=== PATIENT | female | born 1990 | race Caucasian/White ===

== ENCOUNTER 2023-03-15 22:10 | Emergency (ER) | payer OTHER, SELFPAY ==
[2023-03-15 22:12] VITALS: BP 138/102; PULSE 100; RESP 20; TEMP 36.2; O2SAT 97; BMI 35.3
--- NOTE | 2023-03-15 23:26 | ED.VIS.DENTA ---
HPI History of Present Illness Chief Complaint: Dental Informant: patient Narrative Narrative: Patient presents with right-sided dental pain. Patient states that she had a episode of congestion runny nose some chills about 2 weeks ago. She was not really having a lot of right facial pain though. Those symptoms of congestion gotten better but she is maintaining a lot of pain and pressure in this right side of the face. She has sought urgent care about 2 days ago. She was started on Augmentin. But she states the pain is her problem. She was given Toradol there. She has been on a nonsteroidal and Tylenol and it just does not help. No neurologic symptoms. No visual symptoms. It does not hurt when she is exposed to hot or cold liquids or foods. Does not hurt to chew. PFSH PFSH Home Medications fluconazole 150 mg tablet (Diflucan) 150 mg PO Q3D 2 doses #2 tabs 01/31/21 [Rx Last Taken Unknown] norgestimate 0.25 mg-ethinyl estradiol 35 mcg tablet (Previfem) 1 tab PO DAILY 01/31/21 [History Last Taken Unknown] hydrocodone-acetaminophen 5-325mg 5mg-325mg 1 tab PO Q6H PRN PRN Pain 3 days #10 TABLETS 03/15/23 [Rx Last Taken Unknown] prednisone 20 mg tablet 40 mg (2 x 20 mg) PO DAILY 5 days #10 TABLETS 03/15/23 [Rx Last Taken Unknown] Allergy/AdvReac Type Severity Reaction Status Date / Time No Known Allergies Allergy Verified 03/15/23 22:12 Social History Smoking Status: Current every day smoker tobacco type: cigarettes ROS ROS ED Constitutional Constitutional ED: Denies chills or fever(s) Eyes Eyes: Denies change in vision ENT ENT ED: Reports other Details: See history of present illness. Cardiovascular Cardiovascular: Denies chest pain Respiratory/Chest Respiratory/Chest: Denies cough or dyspnea Gastrointestinal Gastrointestinal: Denies nausea or vomiting Musculoskeletal Musculoskeletal: Denies myalgias Integumentary Denies rash Neurologic Neurologic: Denies headache(s) Hematologic/Lymphatic Hematologic/Lymphatic: Denies lymphadenopathy Allergic/Immunologic Allergic/Immunologic ED: Denies urticaria EXAM Physical Exam Narrative Exam Narrative: CONSTITUTIONAL: Patient is nontoxic in appearance. The patient looks comfortable. Work of breathing looks normal. HEENT: No notable trauma. No facial swelling erythema or rash. There is no TMJ pain. When she bites there is a little grinding but it does not reproduce symptoms and it does not hurt. Tympanic membranes are both completely clear. No tenderness at the tragus. There is some right facial/maxillary sinus area tenderness. Internally she has some dental caries. Some of these have temporary fillings which she states did help a little bit. But her teeth are not markedly tender. Nasal passages are clear. EYES: No conjunctival injection. No proptosis. No pain or limitation of range of motion. NECK: No JVD or lymphadenopathy. CARDIOVASCULAR: Regular rate. Regular rhythm. No notable murmur. No JVD. RESPIRATORY: No respiratory distress. Breathing is unlabored. No wheezes. No coughing. NEUROLOGICAL: Patient is alert and appropriate. No focal deficit noted. SKIN: No noted rashes. Negative Fields sign. No diaphoresis. PSYCHIATRIC: Patient is calm. Mood is appropriate. Const Vital Signs: 03/15/23 22:12 Temperature 97.1 F L Temperature Source Temporal Pulse Rate 100 Respiratory Rate 20 H Blood Pressure 138/102 H Blood Pressure Mean 114 Pulse Ox 97 Oxygen Delivery Method Room Air MDM MDM MDM Narrative Medical decision making narrative: I explained to the patient that I am not sure this is dental pain. This may be sinusitis that she has maxillary sinus area tenderness after a cold. It has been 2 weeks now. She should stay on the Augmentin. This is still appropriate antibiotics. She is only started her second day and she has a 10-day supply. I will write for a few pills of pain meds. Her online prescribing report is negative. We will also give a short course of steroids that may help some of her symptoms. Discharge Plan Triage Chief Complaint: Dental ED Provider: Flavio Li Dx/Rx/DC Orders Clinical Impression: Right maxillary sinusitis Instructions: ED Sinusitis (Antibiotic Treatment) Prescriptions: New hydrocodone-acetaminophen [hydrocodone-acetaminophen] 5-325 mg tablet 1 tab PO Q6H PRN PRN (Reason: Pain) 3 Days Qty: 10 0RF prednisone 20 mg tablet 40 mg PO DAILY 5 Days Qty: 10 0RF No Action fluconazole [Diflucan] 150 mg tablet 150 mg PO Q3D Qty: 2 0RF Rx Instructions: may repeat second dose 72 hrs after first dose if symptoms persist norgestimate-ethinyl estradiol [Previfem] 0.25-35 mg-mcg tablet 1 tab PO DAILY Primary Care Provider: Sue Valente Referrals: Sue Valente MD [Primary Care Provider] - 3-5 Days if not improving Disposition Disposition: Home, Self Care
[2023-03-15] MEDS: HYDROcodone Bitartrate/Apap 5/325 Tablet PO (23:36)
--- OUTSIDE RECORDS SUMMARY | 2023-03-15 23:47 | XMS RPT_ITS | CCD ---
Author Name Unknown Address [address] [place] [address] Organization [facility] Care Team Providers Care Tobacco Curer Name Role Phone BELINDA ROBB Unavailable Unavailable Results Test Name Value Interpretation Reference Range Facil ity Encounters Encounter Date Encounter Type Care Provider Facility Start: 08-05-2016 End: 08-05-2016 Ambulatory BELINDA ROBB [facility] Summary Purpose Family History No Family History Records Found Advance Directives No Advanced Directives Records Found Additional Source Comments INFORMATION SOURCE (unrecogn ized section and content) FOR RECORDS PERTAINING TO PATIENTS WHO ARE OR HAVE BEEN ENROLLED IN A CHEMICAL DEPENDENCY/SUBSTANCEABUSE PROGRAM, SOME INFORMATION MAY BE OMITTED. This clinical summary was aggregated from multiple sources. Caution should be exercised in using it in the provision of clinical care. This summary normalizes information from multiple sources, and as a consequence, information in this document may materially change the coding, format and clinical context of patient data. In addition, data may be omitted in some cases. CLINICAL DECISIONS SHOULD BE BASED ON THE PRIMARY CLINICAL RECORDS. [employer] provides no warranty or guarantee of the accuracy or completeness of information in this document.
== END 2023-03-15 23:56 | disposition home or self-care (01) ==
LOC: ED 23:44
PROVIDERS: Emergency Provider Emergency Medicine; PCP Nurse Practitioner Family; Visit Provider Emergency Medicine
DX: J32.0 Chronic maxillary sinusitis (principal); F17.210 Nicotine dependence, cigarettes, uncomplicated
CPT/HCPCS: 99282

== ENCOUNTER → 2023-07-06 | Outpatient (CLI) | payer OTHER, SELFPAY | END | disposition home or self-care (01) | LOC: LAB 15:34 | PROVIDERS: PCP Nurse Practitioner Family; Referring Provider Nurse Practitioner Women's Health; Visit Provider Nurse Practitioner Women's Health | DX: Z11.3 Encounter for screening for infections with a predominantly sexual mode of transmission (principal) | CPT/HCPCS: 87491; 87591 ==